=== PATIENT | female | born 1990 | race Caucasian/White ===

== ENCOUNTER → 2017-10-03 15:05 | Outpatient (REF) | payer BC, SELFPAY ==
[2017-10-03 19:39] LABS: HCT 35.8 % (36.0-46.0); HGB 12.2 g/dL (12.0-15.5); Mean Corp. HGB Concentration 34.1 g/dL (32.0-36.0); Mean Corpuscular Hemoglobin 31.7 pg (27.0-33.0); Mean Platelet Volume 9.4 fL (8.0-11.0); Platelet Count 245 x1000/uL (130-400); RBC 3.85 m/cumm (4.00-5.20); RBC Distribution Width 11.8 % (11.7-14.6); White Blood Cell Count 5.22 k/cumm (4.4-10.8)
[2017-10-03 19:59] LABS: Anion Gap 9.5 mmol/L (3-11); BUN 21 mg/dL (7-18); CO2 27.5 mmol/L (21.0-32.0); CREATININE 0.91 mg/dL (0.55-1.02); Calcium 8.8 mg/dL (8.5-10.1); Chloride 102 mmol/L (98-107); Glucose 77 mg/dL (70-100); Sodium 139 mmol/L (136-145); TSH (W/Ref FT4) 3.04 uIU/mL (0.358-3.74)
[2017-10-05 12:05] LABS: HIV-1/2 Ag & Ab Screen Negative (NEGAT)
== END ==
LOC: NCHCN 15:05
PROVIDERS: PCP Family Medicine; Visit Provider Family Medicine
DX: N97.9 Female infertility, unspecified (principal); R53.83 Other fatigue; Z11.4 Encounter for screening for human immunodeficiency virus [HIV]
CPT/HCPCS: 80048; 85027; 87389; 84443

== ENCOUNTER 2018-11-01 15:47 | Outpatient (REF) | payer BC, SELFPAY ==
[2018-11-01 19:13] LABS: Bilirubin Negative (Negative); Blood Negative (Negative); Clarity Clear (Clear); Glucose Negative (Negative); Ketones Negative (Negative); Leukocyte Esterase Negative (Negative); Nitrite Negative (Negative); Urobilinogen 0.2 EU/dL (Up TO 0.2)
[2018-11-04 13:01] LABS: Chlamydia Result Negative; GC Result Negative; Specimen Description Urine
== END 2018-11-01 16:07 ==
LOC: NCHCN 15:47
PROVIDERS: PCP Family Medicine; Visit Provider Family Medicine
DX: R10.2 Pelvic and perineal pain (principal); Z11.3 Encounter for screening for infections with a predominantly sexual mode of transmission; R35.8 Other polyuria
CPT/HCPCS: 87491; 87591; 81003

== ENCOUNTER 2018-11-05 15:21 | Outpatient (REF) | payer BC, SELFPAY ==
--- NOTE | 2018-11-05 15:21 | PAPFT_PTH ---
PATIENT: Olga Lidia Osorio LOC: [facility] U#:[id number] AGE/SX: 28/F ROOM: RE11/05/[address]: Claudio Scott : 1990 BED: DIS: 11/05/2018 SPEC #: [id number] RECD: 11/06/18 12:57 STATUS: NAMAN REQ #: [id number] HUMAIRA: 11/05/18 15:[address]: Claudio Scott DEPT: [facility] Cytology RECD BY: Susan Zhang Tissues: 1 - CX/ENDOCX FOR PAP SMEARS Procedures: PAP THIN PREP/[facility] Screening Comments: [id number]
== END 2018-11-05 15:41 ==
LOC: NCHCN 15:21
PROVIDERS: PCP Family Medicine; Visit Provider Family Medicine
DX: Z12.4 Encounter for screening for malignant neoplasm of cervix (principal)
CPT/HCPCS: 88142

== ENCOUNTER 2018-11-11 00:42 | Outpatient (CLI) | payer BC, SELFPAY ==
--- NOTE | 2018-11-11 14:00 | DI.US_ITS ---
SYMPTOMS/DIAGNOSIS: DYSPAREUNIA, PELVIC PAIN, H/O HEMORRHAGIC CYST, PAINFUL MENSES PELVIC ULTRASOUND: The uterus is retroverted and measures 8.2 cm in length, 2.8 cm in height and 5.03 cm in width. The endometrial stripe thickness is 13.1 mm. The right ovary measures 4 x 2.2 x 1.8 cm. There is a dominant right ovarian follicle measuring 1.9 x 1.2 x 1.7 cm. A large solid-appearing left ovarian mass is demonstrated with no blood flow. This measures up to 11.7 x 6.9 x 10.2 cm and has increased in size when compared with the previous study of 08/07/2013. The possibility of a sizeable endometrioma is raised. I suppose a hemorrhagic cyst is also in the differential. Further evaluation of this patient with a pelvic MRI is suggested.
--- NOTE | 2018-11-11 14:00 | DI.US_ITS ---
EXAM: US BREAST LT LIMITED CLINICAL HISTORY: LT BREAST LUMP, N63.0. TECHNIQUE: Ultrasound performed using standard protocol. FINDINGS: Limited ultrasound examination of the left breast reveals no evidence of a cyst or mass.
== END 2018-11-11 01:02 ==
PROVIDERS: PCP Family Medicine; Visit Provider Family Medicine
DX: N63.20 Unspecified lump in the left breast, unspecified quadrant (principal); R10.2 Pelvic and perineal pain; N94.10 Unspecified dyspareunia; N83.292 Other ovarian cyst, left side; N83.01 Follicular cyst of right ovary
CPT/HCPCS: 76642; 76830; 76856

== ENCOUNTER 2019-07-31 12:33 | Outpatient (REF) | payer MEDICAID, SELFPAY ==
[2019-07-31 15:10] LABS: HCT 37.6 % (36.0-46.0); HGB 12.7 g/dL (12.0-15.5); Mean Corp. HGB Concentration 33.8 g/dL (32.0-36.0); Mean Corpuscular Volume 91.7 fL (80-95); Mean Platelet Volume 9.6 fL (8.0-11.0); Platelet Count 260 x1000/uL (130-400); RBC Distribution Width 11.8 % (11.7-14.6); White Blood Cell Count 5.54 k/cumm (4.4-10.8)
[2019-07-31 15:37] LABS: Ferritin 94 ng/mL (8-252); TSH (W/Ref FT4) 1.77 uIU/mL (0.36-3.74)
== END 2019-07-31 12:53 ==
LOC: NCHCN 12:33
PROVIDERS: PCP Family Medicine; Visit Provider Family Medicine
DX: D64.9 Anemia, unspecified (principal); R53.83 Other fatigue
CPT/HCPCS: 85027; 82728; 84443

== ENCOUNTER 2020-02-02 13:47 | Outpatient (REF) | payer MEDICAID, SELFPAY ==
[2020-02-02 19:08] LABS: HCT 35.5 % (36.0-46.0); HGB 12.2 g/dL (11.2-15.7); MCH 31.4 pg (27.0-33.0); MCHC 34.4 % (32.0-36.0); MCV 91.3 fL (80-95); MPV 9.7 fL (8.0-11.0); Platelet Count 215 10^3/uL (130-400); RBC 3.89 10^6/uL (3.93-5.22); RDW 12.5 % (11.7-14.6); RDW-SD 41.5 fL; WBC 4.88 10^3/uL (4.4-10.8)
[2020-02-02 19:22] LABS: Iron 98 ug/dL (50-170); Total Iron Binding Capacity 276 ug/dL (250-450); Transferrin Sat 36 % (15-50)
[2020-02-02 20:27] LABS: Ferritin 272 ng/mL (8-252)
[2020-02-03 18:03] LABS: Prolactin 7.5 ng/mL (See Table)
== END 2020-02-02 14:07 ==
LOC: NCHCN 13:47
PROVIDERS: PCP Family Medicine; Visit Provider Family Medicine
DX: D50.0 Iron deficiency anemia secondary to blood loss (chronic) (principal); N92.6 Irregular menstruation, unspecified
CPT/HCPCS: 85027; 82728; 83540; 83550; 84146

== ENCOUNTER 2020-10-15 20:14 | Outpatient (REF) | payer MEDICAID, SELFPAY ==
[2020-10-15 21:08] LABS: Abs Immature Grans 0.01 10^3/uL (0.0-0.06); Absolute Basophil Count 0.03 10^3/uL (0.0-0.2); Absolute Eosinophil Count 0.07 10^3/uL (0.0-0.7); Absolute Lymphocyte Count 1.02 10^3/uL (1.2-3.4); Absolute Monocyte Count 0.25 10^3/uL (0.1-0.8); Absolute Neutrophil Count 2.72 10^3/uL (1.2-6.7); Basophils % 0.7; Eosinophils % 1.7; HCT 35.8 % (36.0-46.0); HGB 12.4 g/dL (11.2-15.7); Immature Grans % 0.2; Lymphocytes % 24.9; MCH 30.8 pg (27.0-33.0); MCHC 34.6 % (32.0-36.0); MCV 88.8 fL (80-95); MPV 9.8 fL (8.0-11.0); Monocytes % 6.1; Neutrophils % 66.4; Nucleated RBC 0 %; Platelet Count 274 10^3/uL (130-400); RBC 4.03 10^6/uL (3.93-5.22); RDW 11.8 % (11.7-14.6); RDW-SD 37.4 fL; WBC 4.09 10^3/uL (4.4-10.8)
[2020-10-18 12:57] LABS: IgA 116 mg/dL (85-499); Interpretation (See Note); Tissue Transglutaminase IgA <1.2 U/mL (<4.0)
== END 2020-10-15 20:15 | disposition home or self-care (01) ==
LOC: NCHCN 20:14
PROVIDERS: PCP Family Medicine; Visit Provider Family Medicine
DX: D64.9 Anemia, unspecified (principal); R10.9 Unspecified abdominal pain; K52.9 Noninfective gastroenteritis and colitis, unspecified
CPT/HCPCS: 82784; 83516; 87329; 83630; 85025

== ENCOUNTER 2020-10-18 18:56 | Outpatient (REF) | payer MEDICAID, SELFPAY | END 2020-10-18 18:57 | disposition home or self-care (01) | LOC: NCHCN 18:56 | PROVIDERS: PCP Family Medicine; Visit Provider Family Medicine | DX: K52.9 Noninfective gastroenteritis and colitis, unspecified (principal) | CPT/HCPCS: 87329; 83630 ==

== ENCOUNTER 2020-12-13 09:59 | Outpatient (REF) | payer MEDICAID, SELFPAY ==
[2020-12-15 19:27] LABS: Calprotectin <15.6 mcg/g
== END 2020-12-13 10:00 | disposition home or self-care (01) ==
LOC: LBN 09:59
PROVIDERS: PCP Family Medicine; Visit Provider Family Medicine
DX: K52.9 Noninfective gastroenteritis and colitis, unspecified (principal)
CPT/HCPCS: 83993